=== PATIENT | female | born 1990 ===

== ENCOUNTER → 2022-03-31 14:46 | Outpatient (BNVA) | payer OTHER, SELFPAY | PROVIDERS: PCP Internal Medicine Hematology & Oncology; Visit Provider Nurse Practitioner Family | DX: R51.9 Headache, unspecified (principal); M62.838 Other muscle spasm; R20.2 Paresthesia of skin | CPT/HCPCS: 99202 ==

== ENCOUNTER → 2022-06-10 10:02 | Outpatient (BNVA) | payer OTHER, SELFPAY | PROVIDERS: PCP Internal Medicine Hematology & Oncology; Visit Provider Nurse Practitioner Family | DX: R51.9 Headache, unspecified (principal); M62.838 Other muscle spasm; R20.2 Paresthesia of skin | CPT/HCPCS: 99212 ==

== ENCOUNTER → 2022-10-11 09:22 | Outpatient (BNVA) | payer OTHER, SELFPAY | PROVIDERS: PCP Internal Medicine Hematology & Oncology; Visit Provider Nurse Practitioner Family | DX: R51.9 Headache, unspecified (principal); M62.838 Other muscle spasm | CPT/HCPCS: 99212 ==

== ENCOUNTER 2024-05-07 09:31 | Outpatient (AMB) | payer OTHER, SELFPAY ==
[2024-05-07 09:47] VITALS: BP 114/70; PULSE 77; O2SAT 98; BMI 23.3
--- NOTE | 2024-05-07 09:47 | A.OFFVIS_ITS ---
Vital Signs 05/07/24 09:47 Height 5 ft 5 in Weight 140 lb BMI 23.3 BP 114/70 Blood Pressure Location Rt brachial Position Sitting Pulse 77 Pulse Source Pulse Oximeter Pulse Oximetry (%) 98 Oxygen Delivery Method Room Air Intake Visit Reasons: Follow Up Allergies No Known Allergies Allergy (Verified 05/07/24 09:50) Medication List - Last Reconciled 05/07/24 by KALIA Chaparro acetaminophen (Tylenol) 325 mg PO QID PRN muqqnqd-vhkqiouqkevdk-ahqjhray 250-250-65 mg (Excedrin Migraine) 2 tabs PO Q6H PRN baclofen 10 mg PO BEDTIME PRN ferrous sulfate 325 mg PO DAILY magnesium oxide 400 mg PO BEDTIME 30 days multivitamin 1 tab PO DAILY riboflavin (vitamin B2) 400 mg PO DAILY 30 days sumatriptan succinate 50 - 100 mg orally at onset of headache, may repeat in 2 hrs PRN; max 2 tabs per day or 4 tabs/week (may take with Ibuprofen) 30 days Do you need a note to return to daycare/school/sports/work: No HPI Comments Details: 33-yr-old female presents for f/u visit of headache. Pt reports she had stopped her medications, including her magnesium, ferrous sulfate and vit d. She has been noticing increased menorrhagia in her last 2 menstrual cycles- heavier, more painful, a/w nausea. She has h/o uternien cyst. Does have a [employer]- needs to make a f/u appt She has a PCP appt on 06/04/24. She feels she was having some s/s of depression and sleep difficulties w/ ruminating thoughts. She asks about anxiety- is it a condition. She is trying to make some lifestyle changes, which are helping some. She is taking coffee once in the am She is taking valerian tea and resumed Magnesium, which helps w/ sleep. She has been talking w/ her aunt to help her manage her stress. 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 She feels that her headaches are better. She rarely has a headache a/w numbness. She can still have headache a/w ear redness/warmth and hot flash. She also notes that when over thinking her ears can become red and warm. She is occasionally using Naproxen prn- also for menstrual cramps. Baseline headache characteristics:: Age of onset: Adolescence. Preceding causes: None Aura: Denies Headache characteristics: Moderate-severe Bilateral temporal and parietal stabbing/pressure pain, can be bilateral, but stronger on one side than the other. Associated symptoms: Phonophobia, shaky and dizzy (this responds to eating), activity intolerance. Can have brief numbing in the occipital region. Bilateral ear redness. About focal weakness. Prodrome symptoms: None PFSH Medical History Vitamin D deficiency FANTA (iron deficiency anemia) Convulsion Surgical History Hx laparoscopic cholecystectomy Family History Father Diabetes Hypertension Mother Diabetes Migraines Asthma Paternal Grandfather Cancer Unknown Cancer Unknown Cancer Social History Alcohol intake: current Alcohol intake frequency: holidays/special occasions only Patient Tobacco Use Status: Never used Tobacco Physical Exam Vital Signs: Last Vital Signs Pulse 77 05/07/24 09:47 BP 114/70 05/07/24 09:47 Pulse Ox 98 05/07/24 09:47 Oxygen Delivery Method Room Air 05/07/24 09:47 BMI result Body Mass Index 23.3 Const General: cooperative and no acute distress Orientation/consciousness: patient oriented x3 Resp Effort & Inspection: normal respiratory effort and able to speak in complete sentences Neuro General: patient oriented x3, gait normal and CN's II-XI intact bilaterally Cognition (Neuro): normal cognition Motor exam (neuro): 5/5 motor strength present throughout Psych Appearance: grossly normal Mental Status: mental status grossly normal Speech and movement: Normal speech and movement present Affect: normal affect Attitude: cooperative Thought process: Normal thought process present Thought content: Normal thought content present Assessment & Plan Assessment & Plan (1) Headache: Code(s): R51.9 - Headache, unspecified Category: Medical (2) Sleep difficulties: Comment: r/t ruminating thoughts Code(s): G47.9 - Sleep disorder, unspecified Category: Medical (3) FANTA (iron deficiency anemia): Code(s): D50.9 - Iron deficiency anemia, unspecified Category: Medical Plan For sleep difficulties: Reviewed difference between emotions of anxiety and and anxiety disorder. Reviewed general sleep education principles, including simple strategies to optimize sleep hygiene and sleep quality, as well strategies to minimize ruminating thoughts. List. of sleep resources shared w/pt, such as the book Say [place] to Insomnia by Dr Carlos Mauricio. Recheck labs, as nutritional deficiencies can negatively affect daytime energy levels and sleep quality. Lab orders printed and given to patient. 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 For overall headache management: Continue optimizing good self-care, including but not limited to maintaining a healthy diet,?avoiding fasting, adequate fluid intake, adequate sleep, and engaging in regular physical activity. ? For acute headache treatment: Discussed importance of taking acute medications at the first sign of headache. Naproxen 220-440 mg every 12 hours as needed. For more severe headache, trial Sumatriptan 100mg tab, 1/2 - 1 tab (50-100mg) at onset of headache, may repeat in 2 hours. Max of 2 tabs (200mg) per 24 hours. May adjunct with OTC Tylenol 650mg q 4 hours, Ibuprofen 600mg q 6 hours, or Naproxen 440mg q 12 hrs prn. ? For headache prevention medication: Resume Riboflavin 400mg qam Continue Magnesium 400mg qhs ? For cervical muscle spasms and TMJ s/s: May use Baclofen 10mg qhs prn. Pt would benefit from trying a mouth guard- may try an OTC version or speak with her dentist. ? Will follow-up upon review of above and patient to follow-up in clinic in 6 months or sooner prn. Orders: Orders Complete Blood Count Auto Diff Today D50.9 - Iron deficiency anemia, unspecified, E55.9 - Vitamin D deficiency, unspecified, R20.2 - Paresthesia of skin Comprehensive Met. Panel Today D50.9 - Iron deficiency anemia, unspecified, E55.9 - Vitamin D deficiency, unspecified, R20.2 - Paresthesia of skin Ferritin Today D50.9 - Iron deficiency anemia, unspecified, E55.9 - Vitamin D deficiency, unspecified, R20.2 - Paresthesia of skin IRON PROFILE Today D50.9 - Iron deficiency anemia, unspecified, E55.9 - Vitamin D deficiency, unspecified, R20.2 - Paresthesia of skin Vitamin D 25-OH (D2 and D3) Today D50.9 - Iron deficiency anemia, unspecified, E55.9 - Vitamin D deficiency, unspecified, R20.2 - Paresthesia of skin Vitamin B12 and Folate Today D50.9 - Iron deficiency anemia, unspecified, E55.9 - Vitamin D deficiency, unspecified, R20.2 - Paresthesia of skin Methylmalonic Acid Today D50.9 - Iron deficiency anemia, unspecified, E55.9 - Vitamin D deficiency, unspecified, R20.2 - Paresthesia of skin Homocysteine Today D50.9 - Iron deficiency anemia, unspecified, E55.9 - Vitamin D deficiency, unspecified, R20.2 - Paresthesia of skin Folate Today D50.9 - Iron deficiency anemia, unspecified, D64.9 - Anemia, unspecified Coding Level of Care Code Est Pt Level 4 (50244) Diagnoses Headache R51.9 Sleep difficulties G47.9 FANTA (iron deficiency anemia) D50.9
== END 2024-05-07 10:41 | disposition home or self-care (01) ==
PROVIDERS: PCP Internal Medicine Hematology & Oncology; Visit Provider Nurse Practitioner Family
DX: R51.9 Headache, unspecified (principal); G47.9 Sleep disorder, unspecified; D50.9 Iron deficiency anemia, unspecified
CPT/HCPCS: 99214

== ENCOUNTER → 2024-05-07 09:31 | Outpatient (BNVA) | payer OTHER, SELFPAY | PROVIDERS: PCP Internal Medicine Hematology & Oncology; Visit Provider Nurse Practitioner Family | DX: G47.9 Sleep disorder, unspecified (principal); D50.9 Iron deficiency anemia, unspecified; R51.9 Headache, unspecified | CPT/HCPCS: 99212 ==